=== PATIENT | male | born 1960 | race Caucasian/White ===

== ENCOUNTER 2017-11-28 12:49 | Emergency (ER) | payer SELFPAY ==
[~2017-11-28] VITALS: Ht 177.8 cm; Wt 68.0 kg
[~2017-11-28 12:49] MED LIST: ERYT.5TO OD; HYDACE5 PO
[2017-11-28] MEDS ORDERED: Naprosyn500 MG PO (15:04)
== END 2017-11-28 15:09 | disposition home or self-care (01) ==
LOC: ER 12:49
DX: M25.461 Effusion, right knee (principal); F17.200 Nicotine dependence, unspecified, uncomplicated
CPT/HCPCS: 73564; 99283